=== PATIENT | female | born 1955 | race Caucasian/White ===

== ENCOUNTER 2019-03-12 22:29 | Emergency (ER) | payer OTHER ==
[~2019-03-12] VITALS: Ht 167.6 cm; Wt 64.9 kg
[2019-03-12] MEDS ORDERED: DEXAMETHASONE1 MG PO (22:37)
[2019-03-12] MEDS ORDERED: XANAX 0.5 MG0.5 MG (22:38)
[2019-03-13] MEDS ORDERED: CLORAZEPATE DIP15 MG PO (00:36)
[2019-03-13 00:45] VITALS: BP 116/85
== END 2019-03-13 00:45 | disposition home or self-care (01) ==
LOC: ER 22:29
DX: G47.00 Insomnia, unspecified (principal); Z88.1 Allergy status to other antibiotic agents; Z85.3 Personal history of malignant neoplasm of breast

== ENCOUNTER 2020-01-19 03:02 | Inpatient (IN) | payer OTHER, BC ==
[~2020-01-19] VITALS: Ht 167.6 cm; Wt 66.2 kg
[2020-01-19] VITALS (7 sets, daily range): BP systolic 119–155; BP diastolic 76–96
--- NOTE | ~2020-01-19 | HC ---
[facility] [address] CONSULTATION Name: DELMI VAZQUEZ Yousif Room #: 213-P ADM IN M.R.#: [id number] Admission: 01/19/20 Attend Phys: Mariah Davey Discharge: Date of : 57 Report #: [id number] THIS REPORT FOR: cc: Lucila Us MD,Andrew Key MD, MD ~ CC: Michael Us DATE OF SERVICE: 01/19/2020 REQUESTING PHYSICIAN: Dr. Mariah Davey. REASON FOR CONSULTATION: Metastatic breast cancer. HISTORY OF PRESENT ILLNESS: The patient is a 64-year-old female well known to me with a history of breast cancer since 05/2001 with local recurrence in 2004, systemic recurrence in 2009. She recently has been on Xeloda oral chemotherapy. She has had brain recurrent several times and these have been treated over at [facility]. She recently had an outpatient MRI head at on 12/22/2019, which showed slight continued enlargement of the dominant centrally necrotic irregular enhancing right occipital mass lesion. 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 The residual recurrent tumor could coexist. Yesterday, the patient at about 4:30 noticed some numbness in her right leg from about the upper thigh down to the ankle. This resolved after a while, without any specific intervention. She was thinking clearly at that time, was able to communicate, a little bit later on, she had the same recurrent symptoms on her right leg from her upper thigh to ankle and also from her right shoulder to her wrist. This has then somewhat persisted, though it has waxed and waned since that time. She has felt a little bit unstable, though was able to ambulate. She felt like her thinking was mostly clear, though she is a little bit anxious as she admits. At this time, the patient denies any unusual headache, any hearing troubles, any new visual troubles, though she has had some visual changes probably related to past LASIK surgery, cataract surgery, and she has had known visual field abnormality from the past. She denies any swallowing trouble any breathing troubles, any fevers or chills, blood in her urine or stool, dysuria, diarrhea, constipation, skin rash. She does not feel like she is particularly weak in any extremity or grasp or when walking. [address] [address] CONSULTATION Name: DELMI VAZQUEZ Room #: 213-P [facility] IN ..#: [id number] Admission: 01/19/20 Attend Phys: Mariah Davey Discharge: Date of : 57 Report #: [id number] PAST MEDICAL HISTORY: Notable for the metastatic breast cancer originally diagnosed right-sided breast in May 2001. It was invasive lobular ER/AK positive. She received AC chemotherapy followed by adjuvant tamoxifen and Zoladex. She then had radiation therapy. She had locally recurrent disease in 2004. Several lymph nodes were positive. She was thought to be going to be a stage 3, that tumor was also ER/AK positive, HER-2/netta negative. She was then treated with tamoxifen and Zoladex which was completed in 2009. She then had more of a systemic recurrence 09/2015 with involvement of the pretracheal and right hilar lymph nodes. This tumor was again ER/AK positive, HER-2/netta negative. She has been on Femara for a while. She was on Ibrance. She was then begun on Ibrance per another provider in about 11/2016. She had progressive disease. She then was on Faslodex. She had progression and then began exemestane in July 2018. In August 2018, she was found to have brain metastasis and had radiation therapy SBRT with Dr. Suh. In December, she had progression on the exemestane and began Xeloda. The patient had an MRI of the brain showing progressive increase in size at [facility] in January of 2019. I believe she has had radiation therapy again somewhere in that time. PAST MEDICAL HISTORY: Is also notable for bone mets. She has also had some difficulty with gastritis in the past. MEDICATIONS: Current medications in the chart include dexamethasone 4 mg q. 8 hours, which I just ordered to begin after the MRI head, Zoloft 50 mg daily, famotidine 20 daily, Zofran p.r.n., Tylenol p.r.n., MiraLax p.r.n. PHYSICAL EXAMINATION: VITAL SIGNS: The patient's height is 5 feet 6 inches, which is 167.6 cm. Weight is 126 pounds, which is 57.2 kilograms. Blood pressure is 155/95, O2 sat 100%, respirations 18, temperature 97.9, pulse 70. MOOD: The patient is alert, slightly anxious and conversant. NEUROLOGIC: Speech and thought pattern appear to be normal. Strength appears to be grossly normal. She does have to confrontation some slight altered sensation on her anterior, lateral and posterior right leg from about the upper thigh down to the ankle. Top of foot and bottom of foot appeared to be mostly normal. Also, has similar description on her right arm from about the shoulder down to the wrist. Also, a little bit on her forehead and her side of her right face a little bit altered. LYMPHATICS: No enlarged lymph nodes in the supraclavicular, cervical, axillary or inguinal region. HEENT: Oropharynx: Soft palate. Lips appropriately. Tongue appears to be moving side to side normally. No lesions. LUNGS: Clear. HEART: Regular rate. ABDOMEN: Scaphoid, no masses. EXTREMITIES: Without clubbing, cyanosis or edema. [facility] [address] [place] [address] CONSULTATION Name: DELMI VAZQUEZ Yousif Room #: 213-P [facility] IN [facility].#: [id number] Admission: 01/19/20 Attend Phys: Mariah Davey Discharge: Date of : 57 Report #: [id number] LABORATORY DATA: Done here include coags which were normal. White count of 4.4, hemoglobin 13.3, MCV 102.5, most likely from her Xeloda. Platelets 250. Differential nonacute. CMP notable for creatinine 0.7. AST slightly up at 43. ALT slightly low 26, alkaline phosphatase 40, low. Albumin 3.4. CT head without contrast done here shows a curvilinear hyperdense lesions in the right posterior parietal lobe and left frontal lobe, which have large amount of adjacent white matter edema. There is marked effacement of the posterior parietal and occipital sulci. These areas likely represent calcified intracranial metastasis with possible radiation therapy changes. No evidence of definite hemorrhage is present, although small focal hemorrhages in the areas of opacification cannot be completely excluded. No evidence of subarachnoid or subdural intraventricular hemorrhage. The ventricles and sulci were mildly prominent, although no gross hydrocephalus or midline shift was present. Chest x-ray without acute changes, upper limits of normal without evidence of gross CHF or pulmonary edema. No evidence of pneumonia. ASSESSMENT AND PLAN: 1. 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 We will order MRI head. We will also begin steroids, dexamethasone 4 mg t.i.d., but would like to wait until after MRI, so we do not confuse comparison. We will also ask that [facility] MRI head be clouded over. Note that this had been done on 12/22/2019. Neurology to see. If stable, may consider outpatient followup with Dr. Mccormick, Neurosurgery for planned surgery in about 2 weeks if I understand correctly. 2. Metastatic breast cancer, has been on Xeloda. We will hold until this all sorts out. 3. Gastritis prophylaxis. Continue Pepcid. We will follow. By: 0914 1217 Andrew Palmer MD /nt
[~2020-01-19 03:02] MED LIST: CLORAZEPATE DIP15 MG PO; DEXAMETHASONE1 MG PO; XANAX 0.5 MG0.5 MG
[2020-01-19 03:59] LABS: HEMATOCRIT 39.2 % (37.0-47.0); HEMOGLOBIN 13.3 gm/dL (12.0-15.0); MCH 34.8 pg (26.0-34.0); MCHC 33.9 g/dL (28.0-37.0); MCV 102.5 fL (80.0-100.0); PLATELET COUNT 258 thou/uL (150-400); RBC 3.82 mil/uL (4.20-5.00); RDW 16.7 % (10.5-14.5); WBC 4.4 thou/uL (4.0-11.0)
[2020-01-19 04:00] LABS: ANION GAP 7 mmol/L (7-16); BUN 20 mg/dL (7-18); CALCIUM 8.9 mg/dL (8.5-10.1); CHLORIDE 103 mmol/L (98-107); CO2 25 mmol/L (21-32); CREATININE 0.7 mg/dL (0.6-1.0); GLUCOSE 103 mg/dL (74-106); POTASSIUM 4.3 mmol/L (3.5-5.1); SODIUM 135 mmol/L (136-145)
[2020-01-19 04:10] LABS: ALBUMIN 3.4 g/dL (3.4-5.0); SGPT 26 U/L (30-65); TOTAL BILIRUBIN 0.4 mg/dL (0.2-1.0); TOTAL PROTEIN 6.9 g/dL (6.4-8.2); TROPONIN-I <0.06 ng/mL (<0.06)
[2020-01-19 04:20] LABS: APTT 26.3 Seconds (24.5-32.8); PROTIME 10.4 Seconds (9.3-11.4)
[2020-01-19] MEDS ORDERED: ZOLOFT50 M1 PO (04:43)
[2020-01-19 04:44] LABS: ABSOLUTE NEUTROPHILS 2.7 thou/uL (1.4-8.2); ANISOCYTOSIS 1+
[2020-01-19] MEDS ORDERED: TRANXENE T-TAB7.5 MG PO (04:45)
[2020-01-19 05:01] LABS: SGOT 43 U/L (15-37)
--- NOTE | 2020-01-19 07:00 | NUR ---
PT ARRIVED AT THE UNIT AROUND 0600, PT IS AWAKE, ALERT AND ORIENTEDX4, SR ON THE MONITOR, ADMISSION ASSESSMENT CHARTED, PT RESTING, NO DISTRESS NOTED, DENIES PAIN OR SOB, WILL PASS ON REPORT
--- NOTE | 2020-01-19 08:37 | EKG ---
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
--- NOTE | 2020-01-19 14:25 | NUR ---
Chart reviewed and case discussed with the care team. Pt down for MRI this am and unable to reach her via phone. The pt has a hx of metastatic breast ca and admitted with rt sided numbness/ FIELD BROOMER mets. Contact made with her noted spokesperson/spouse Karl Vega to introduce cm and to confirm her plof. Karl indicates that they live seperate and that son Pee should be the main contact for the pt. Pottery Decorator reattempted to contact the pt this afternoon; however she is not available at this time. Will continue to reach out to her to confirm contact information and spokespersons list as well as to assess for any dc needs. The pt lives alone in an apt and was indep with gait and adl's prior to admission. Will ask for therapy evals due to numbness and unsteady gait upon admission. Onc notes the pt is normally followed at [facility]/cancer center and was scheduled for neuro surgery the first week of January for a brain lesion. She is on oral chemo. Will follow.
--- NOTE | 2020-01-19 19:05 | NUR ---
ASSUMMED PT CARE AT APPROXIMATELY 0700. PT A&O X4. ASSESSMENT CHARTED. FALL PRECAUTIONS IN PLACE. PT DENIES HAVING CHEST PAIN. PT DENIES HAVING SOB. PT DENIES HAVING ACUTE PAIN. PT HAD MULTIPLE MRI'S TODAY. INFORMED DR. DALEY AND DR. PILLAI OF RESULTS. BOTH 'S STATED UNDERSTANDING. SEE PHYSICIAN CONTACT INTERVENTION. CALLED RADIOLOGY REGAURDING OTHER TESTS ORDERED. MRI STATED THEY WOULD HAVE TO PERFORM [place] [place] TOMORROW. WHEN ULTRASOUND ARRIVED PT STATED SHE WANTED TO SLEEP WITHOUT ANY INTERRUPTIONS. ULTRASOUND STATED THEY WOULD COME BACK. PT COMFORTABLE IN BED. PT DENIES HAVING FURTHER CONCERNS. VITAL SIGNS STABLE. RADIOLOGY STATED THEY WOULD CLOUD OVER [facility] MRI RESULTS.
[2020-01-20 03:08] VITALS: BP 129/76
--- NOTE | 2020-01-20 04:18 | NUR ---
PATIENT IS ADVANCING SLOWLY IN HER CARE PLAN. VITAL SIGNS STABLE WITH PATIENT HAVING NO COMPLAINTS OF PAIN OR NAUSEA. PATIENT STILL COMPLAINS OF TINGLING AND NUMBNESS IN RIGHT SIDE OF BODY, BUT HAS STATED THAT "IT SEEMS MILDER". FULLY ORIENTED BUT ANXIOUS, PATIENT IS ABLE TO PARTICIPATE IN CARE AND CALL APPROPRIATELY FOR NEEDS. PATIENT PROGRESSED TO UP AD ELIZABETH. SHE IS STRONG AND BALANCED WHEN AMBULATING. CONTINUE PLAN OF CARE.
[2020-01-20 06:03] LABS: CHOLESTEROL 272 mg/dL (<200); HDL CHOLESTEROL 107 mg/dL (>40); LDL CHOLESTEROL 162 mg/dL (<100); TC:HDL 2.5 Ratio (Not establshd); VLDL 3 mg/dL (<40)
[2020-01-20 06:05] LABS: SERUM ASSESSMENT Clear; TRIGLYCERIDE 15 mg/dL (<150)
[2020-01-20 07:37] VITALS: BP 122/80
[2020-01-20] MEDS ORDERED: DEXAMETHASONE 44 M1 PO (08:39)
[2020-01-20] MEDS ORDERED: RESTORIL15 MG PO (08:40)
[2020-01-20] MEDS ORDERED: ASA5UEC PO (09:16)
[2020-01-20 09:33] VITALS: BP 135/75
--- NOTE | 2020-01-20 09:41 | NUR ---
PT. BACK FROM MRI, ECHO BEING PERFORMED RIGHT NOW THEN WILL D/C HOME TODAY. DENIES ANY PAIN, ANY SOB. TELE MONITOR SHOWS PT. NSR, NO ECTOPY.
--- NOTE | 2020-01-20 10:16 | NUR ---
PT. UP IN ROOM, AMBULATING IN ROOM WELL, STRONG TEST LEAD APPLICATION TESTING. DENIES ANY SOB, NO CHEST PAIN. IV HEP LOCKED AND FLUSHED.
--- NOTE | 2020-01-20 10:21 | 2DMMODE ---
[facility] [place] [address] 2 D/M-MODE ECHOCARDIOGRAM Name: DELMI VAZQUEZ Room #: 213-P [facility] IN ..#: [id number] Admission: 01/19/20 Attend Phys: Mariah Davey Discharge: Date of : 57 Report #: [id number] THIS REPORT FOR: cc: Lucila Us MD, Shazia MD Lundgren,Ciro Carmona MD [facility] ~ APPROVED REPORT Study performed: 01/20/2020 09:38:31 EXAM: Comprehensive 2D, Doppler, and color-flow Echocardiogram Patient Location: Bedside Room #: 213 Status: routine BSA: 1.75 HR: 85 bpm BP: 122/80 mmHg Rhythm: NSR Other Information Study Quality: Adequate Technically limited study due to breast implants. Indications CVA/TIA Echo Enhancing Agent Indication: Rule out Shunt Agent(s) / Amount(s) Used: Agitated Saline 7 cc 2D Dimensions RVDd: 34.86 mm IVSd: 7.66 (7-11mm) LVOT Diam: 20.59 (18-24mm) LVDd: 38.82 mm PWd: 8.57 (7-11mm) Ascending Ao: 33.40 (22-36mm) LVDs: 21.58 (25-40mm) Aortic Root: 30.21 mm Volumes Left Atrial Volume (Systole) Single Plane 4CH: 48.85 mL Single Plane 2CH: 44.26 mL LA ESV Index: 28.00 mL/m2 [facility] [address] [place] [address] 2 D/M-MODE ECHOCARDIOGRAM Name: DELMI VAZQUEZ Room #: 213-P [facility] IN ..#: [id number] Admission: 01/19/20 Attend Phys: Mariah Chatman Discharge: Date of : 57 Report #: [id number] Aortic Valve AoV Peak Corey.: 1.64 m/s AO Peak Gr.: 10.69 mmHg LVOT Max P.88 mmHg LVOT Max V: 1.49 m/s BELLA Vmax: 3.03 cm2 Mitral Valve E/A Ratio: 0.9 MV Decel. Time: 176.04 ms MV E Max Corey.: 0.69 m/s MV A Corey.: 0.77 m/s MV PHT: 51.05 ms IVRT: 107.27 ms Pulmonary Valve PV Peak Corey.: 0.85 m/s PV Peak Gr.: 2.92 mmHg Pulmonary Vein P Vein S: 0.83 m/s P Vein A: 0.40 m/s P Vein D: 0.62 m/s P Vein A Dur.: 124.6 msec P Vein S/D Ratio: 1.34 Tricuspid Valve TR Peak Corey.: 1.95 m/s RAP Estimate: 5.00 mmHg TR Peak Gr.: 15.21 mmHg PA Pressure: 20.00 mmHg Left Ventricle The left ventricle is normal size. There is normal LV segmental wall motion. There is normal left ventricular wall thickness. The left ventricular systolic function is normal. The left ventricular ejection fraction is within the normal range. LVEF is 65%. Mild diastolic dysfunction is present (impaired relaxation pattern). Right Ventricle The right ventricle is normal size. The right ventricular systolic function is normal. Atria The left atrium size is normal. No shunting noted by contrast bubble injection. The right atrium size is normal. Aortic Valve The aortic valve is normal in structure, trileaflet. No aortic regurgitation is present. [place] [address] 2 D/M-MODE ECHOCARDIOGRAM Name: DELMI VAZQUEZ Room #: 213-P [facility] IN .R.#: [id number] Admission: 01/19/20 Attend Phys: Mariah Chatman Discharge: Date of : 57 Report #: [id number] stenosis. Mitral Valve The mitral valve is normal in structure. There is no mitral valve regurgitation noted. No evidence of mitral valve stenosis. Tricuspid Valve The tricuspid valve is normal in structure. Mild tricuspid regurgitation. Estimated PAP is 20mmHg. Pulmonic Valve The pulmonary valve is normal in structure. Mild pulmonic regurgitation. Great Vessels The aortic root is normal in size. The ascending aorta is normal in size. IVC is normal in size and collapses >50% with inspiration. Pericardium There is no pericardial effusion. <Conclusion> The left ventricular systolic function is normal. There is normal LV segmental wall motion. LVEF is 65%. Mild diastolic dysfunction No shunting noted by contrast bubble injection. The aortic valve is normal in structure, trileaflet. No aortic regurgitation or stenosis. The mitral valve is normal in structure. No mitral valve regurgitation Mild tricuspid regurgitation. Estimated pulmonary artery pressure of 20mmHg. There is no pericardial effusion. <ELECTRONICALLY SIGNED> By: Ciro Calderon MD, FACC 01/20/20 1019 1019 1019 Ciro Calderon MD, FACC /INF
--- NOTE | 2020-01-20 11:25 | NUR ---
10:30 AM LONG DISCUSSION WITH PATIENT IN REGARDS TO HER OVERALL CARE. ASKED ME IF SHE HAD INDEED HAD A STROKE AND WHO COULD CONFIRM IT OR NOT, IF THERE WAS SOMETHING IN HER BRAIN STEM AND IF SO WHAT, WHO IS PRESCRIBING HER THE STEROIDS AND WHY AN DHOW SHOULD SHE GET OFF OF THEM? MULTIPLE QUESTIONS I WAS UNABLE TO ANSWER. THEREFORE WILL PAGE THE HOSPITALIST TO SPEAK WITH HER AGAIN REGARDING HER DISCHARGE I AM NOT SURE IF THIS WAS DISCUSSED PRIOR THIS AM ALREADY AND SHE IS FORGETFUL OR IF IT WAS NOT DISCUSSED WITH HER. PAGED DR DHILLON AT THIS TIME.
--- NOTE | 2020-01-20 11:54 | NUR ---
DR. PAGAN CALLED BACK SAID WE ARE WAITING FOR NEUROLOGY TO COME SEE HER AND DISCUSS QUESTIONS WITH PT. ABOUT HER CARE PRIOR TO DISCHARGE. I FEEL LIKE SHE IS IN NEED OF SOME HOME CASE MANAGEMENT ALMOST AT THIS TIME SHE SEEMS OVERWHELMED BY HER CARE AND TRYING VERY HARD TO MANAGE ALL THE INFORMATION BEST POSIBLE WHEN SHE HAS SOME NEURO DEFICITS AT PLAY WELL.
--- NOTE | 2020-01-20 13:29 | NUR ---
Pt dcing home later today after being seen by neuro. Commodity Trader spoke with the pt via phone. She is up ad kaycee and feels safe returning home alone. She requests her son Pee, who lives in [place], be her primary contact [phone] and ex Karl [phone] be an alernate if unable to reach Pee. She is a&ox4 and indep prior to admission. She notes her and Karl have been legally seperated for more than 6 years. She is anticipating f/u with her neuro sx at [facility] and notes she also has a second opinion scheduled at [facility] next week regarding her upcoming surgery. She is hoping to get some clarity from neuro regarding possible small lacunar infarct. She is requesting her rad be uploaded via the cloud to [facility] for her f/u. She is signing a release of info for her medical records as well. She denies any dc planning needs and reports that she is indep with gait and adl's. She is feeling better and steady on her feet. Support provided. Nursing to page neuro regarding pt's f/u questions.
--- NOTE | 2020-01-24 18:41 | HC ---
[facility] [place] [address] CONSULTATION Name: DELMI VAZQUEZ Yousif Room #: 213-P [facility] IN M.R.#: [id number] Admission: 01/19/20 Attend Phys: Mariah Davey Discharge: 01/20/20 Date of : 57 Report #: [id number] THIS REPORT FOR: cc: Lucila Us MD,Lucila Johnson,Mann Cardona MD ~ CC: Mariah Us DATE OF SERVICE: 01/19/2020 HISTORY OF PRESENT ILLNESS: This is a 64-year-old female patient who was seen by me first time this morning and since then, I have seen her multiple times. The patient is admitted with recurrent episode of numbness on the left side. This started spontaneously, but probably about 24 hours before she came to the hospital. They have subsided some, but she still has numbness there. It involves face, right upper extremity and right lower extremity. She underwent an MRI of the brain that demonstrated multiple metastases to the brain plus a small lacunar CVA. MRI of the spine showed some minor problem, but nothing drastic. She does not have much weakness. REVIEW OF SYSTEMS: Positive for breast cancer with metastasis to the brain. She had radiation to the brain. She had ovarian cyst in the past. This was a relevant 14-point review of system. FAMILY HISTORY: Positive for breast cancer. SOCIAL HISTORY: She drinks about 1 alcoholic drink majority of the days. PHYSICAL EXAMINATION: Indicates she is alert, responsive, able to follow simple and complex commands. Her speech looks intact. Cranial nerve examination 2-12 looks mostly unremarkable. Objectively, she does appear to have a normal sensation and strength. There is no meningeal sign. There is no carotid bruit. Cardiac examination is unremarkable. No respiratory difficulty was noticed. MRIs were reviewed and is summarized above. LABORATORY DATA: White count is 4.4. IMPRESSION: 1. Metastasis to the brain. 2. Cerebrovascular accident. Because of the history of radiation, vasculitis needs to be excluded. RECOMMENDATION: 1. MRA. 2. Aspirin. [address] [place] [address] CONSULTATION Name: DELMI VAZQUEZ Room #: 213-P [facility] IN ..#: [id number] Admission: 01/19/20 Attend Phys: Mariah Davey Discharge: 01/20/20 Date of : 57 Report #: [id number] 3. She says her cholesterol has been high. We will check it back tomorrow and she may need to be on statin. Time spent about 50 minutes, majority counseling and coordinating. <ELECTRONICALLY SIGNED> By: Mann Johnson MD 01/24/20 1841 1523 1838 Mann Johnson MD /nt
== END 2020-01-20 16:09 | disposition home or self-care (01) | DRG 65 ==
LOC: ER 03:02 → 2N 05:22 → EROBS 05:22 → 2N 05:50
PROVIDERS: Emergency Medicine; Psychiatry & Neurology Neuromuscular Medicine; ADMIT Hospitalist
DX: I63.9 Cerebral infarction, unspecified (principal); C79.31 Secondary malignant neoplasm of brain; H53.8 Other visual disturbances; K21.9 Gastro-esophageal reflux disease without esophagitis; F41.9 Anxiety disorder, unspecified; F32.9 Major depressive disorder, single episode, unspecified; D17.79 Benign lipomatous neoplasm of other sites; Z85.3 Personal history of malignant neoplasm of breast; Z88.1 Allergy status to other antibiotic agents; Z80.3 Family history of malignant neoplasm of breast
CPT/HCPCS: 10081